=== PATIENT | male | born 1980 | race Caucasian/White ===

== ENCOUNTER 2017-06-05 | Emergency (ER) | payer SELFPAY ==
[~2017-06-05] VITALS: Ht 182.9 cm; Wt 108.9 kg
[2017-06-05] MEDS ORDERED: SODIUM CHLORIDE 0.9% 1,000 ML IV ONE (03:45)
[2017-06-05 03:59] LABS: Basophils # (auto) 0.1 uL; CONDITION Y; Eosinophils # (auto) 0.2 uL; Eosinophils % (auto) 2.4 % (0.0-7.0); Hematocrit 49.8 % (41.0-53.0); Lymphocytes # (auto) 2.2 uL; Lymphocytes % (auto) 28.7 % (10.0-50.0); Mean Corpuscular Hemoglobin 29.2 pg (28.0-32.0); Mean Corpuscular Hgb Conc. 34.2 g/dL (32.0-36.0); Mean Corpuscular Volume 85.4 fL (80.0-100.0); Mean Platelet Volume 7.3 fL (7.4-10.4); Monocytes # (auto) 0.6 uL; Monocytes % (auto) 7.8 % (0.0-12.0); Neutrophils # (auto) 4.5 uL; Neutrophils % (auto) 60.1 % (37.0-80.0); Platelet Count (auto) 254 10^3/uL (140-450); White Blood Cell 7.5 10^3/uL (4.4-10.8)
[2017-06-05 04:23] LABS: Albumin 3.8 g/dL (3.4-5.0); BUN/Creatinine Ratio 21.1; Calcium 9.1 mg/dL (8.5-10.1); Potassium 3.8 mmol/L (3.5-5.1)
[2017-06-05 04:27] LABS: Bilirubin, Total 0.7 mg/dL (0.2-1.0); Total Protein 8.1 g/dL (6.4-8.2)
[2017-06-05] MEDS ORDERED: HYDROmorphone HCL 2 MG/ML VL IV ONE (04:30)
[2017-06-05] MEDS ORDERED: ONDANSETRON HCL 4 MG/2 ML VIAL IV ONE (04:30)
[2017-06-05 09:07] VITALS: BP 107/64
== END 2017-06-05 09:18 | disposition home or self-care (01) ==
LOC: ER 00:03
DX: N20.0 Calculus of kidney (principal); E11.9 Type 2 diabetes mellitus without complications; F17.210 Nicotine dependence, cigarettes, uncomplicated; Z87.442 Personal history of urinary calculi; Z90.49 Acquired absence of other specified parts of digestive tract
CPT/HCPCS: 36415; 74176; 80053; 81002; 85025; 96361; 96374; 96375; 99285; J1170; J2405